=== PATIENT | female | born 1990 | race Hispanic/Latino ===

== ENCOUNTER 2021-03-11 18:33 | Emergency (ER) | payer SELFPAY ==
[~2021-03-11] VITALS: Ht 152.4 cm; Wt 78.0 kg
[2021-03-11] MEDS ORDERED: CEFDINIR300 MG PO (19:07)
[2021-03-11] MEDS ORDERED: IBUPROFEN IB200 MG PO (19:07)
[2021-03-11] MEDS ORDERED: ACETAMINOPHEN500 MG PO (19:07)
== END 2021-03-11 19:18 | disposition home or self-care (01) ==
LOC: FSED 18:38
DX: H66.91 Otitis media, unspecified, right ear (principal)
CPT/HCPCS: 99282